=== PATIENT | female | born 1950 | race Caucasian/White ===

== ENCOUNTER → 2016-10-18 | Outpatient (CLI) | payer MEDICARE, OTHER | END | disposition disaster alternative care site (69) | LOC: GRAD 06:52 | DX: C48.1 Malignant neoplasm of specified parts of peritoneum (principal); C77.2 Secondary and unspecified malignant neoplasm of intra-abdominal lymph nodes; Z85.43 Personal history of malignant neoplasm of ovary; D47.2 Monoclonal gammopathy; M54.5 Low back pain; R97.8 Other abnormal tumor markers; R59.0 Localized enlarged lymph nodes | CPT/HCPCS: Q9967 ==

== ENCOUNTER → 2016-11-20 | Outpatient (CLI) | payer MEDICARE, OTHER | END | disposition disaster alternative care site (69) | LOC: GKIC 11:04 | DX: C48.1 Malignant neoplasm of specified parts of peritoneum (principal); C77.8 Secondary and unspecified malignant neoplasm of lymph nodes of multiple regions; E66.9 Obesity, unspecified; E11.9 Type 2 diabetes mellitus without complications; I10 Essential (primary) hypertension; M81.0 Age-related osteoporosis without current pathological fracture; D47.2 Monoclonal gammopathy; Z85.43 Personal history of malignant neoplasm of ovary; Z79.84 Long term (current) use of oral hypoglycemic drugs | CPT/HCPCS: A9552 ==